=== PATIENT | female | born 1930 | race Caucasian/White ===

== ENCOUNTER 2017-05-12 22:41 | Inpatient (IN) | payer BC, MEDICARE ==
--- NOTE | 2017-05-13 00:42 | ED Physician Chart ---
Chief Complaint/HPI - Patient Information Date Seen:: 05/12/17 Time Seen:: 22:50 Chief Complaint:: FALL History of Present Illness:: THIS IS AN 87 YO FEMALE WHO FEMALE WHO LIVES ALONG AND FELL TONIGHT AND SUSTAIN SKIN TEARS ON BOTH LOWER EXTREMITIES. SHE IS CONCERN ABOUT THE NEED TO BE CARED FOR IN A CARE HOME AND WANT A SOCIAL SERVICE CONSULT. Allergies:: Allergies Allergy/AdvReac Type Severity Reaction Status Date / Time No Known Allergies Allergy Verified 05/12/17 22:48 Vitals:: Vital Signs - 8 hr 05/12/17 22:48 Temp 97.9 F HR 63 RR 18 BP 105/49 O2 Sat % 90 Historian:: Patient, EMS Review:: Nurse's Note Reviewed Review of Systems - Review of Systems General/Constitutional: No fever, No chills, No weight loss, No weakness, No diaphoresis, No edema, No loss of appetite Skin: No skin lesions, No rash, No bruising Head: No headache, No light-headedness Eyes: No loss of vision, No pain, No diplopia ENT: No earache, No nasal drainage, No sore throat, No tinnitus Neck: No neck pain, No swelling, No thyromegaly, No stiffness, No mass noted Cardio Vascular: No chest pain, No palpitations, No PND, No orthopnea, No edema Pulmonary: No SOB, No cough, No sputum, No wheezing GI: No nausea, No vomiting, No diarrhea, No pain, No melena, No hematochezia, No constipation, No hematemesis G/U: No dysuria, No frequency, No hematuria Musculoskeletal: No bone or joint pain, No back pain, No muscle pain, Other ( SKIN TEARS OF BOTH LOWER LEGS.) Endocrine: No polyuria, No polydipsia Psychiatric: No prior psych history, No depression, No anxiety, No suicidal ideation Hematopoietic: No bruising, No lymphadenopathy Allergic/Immuno: No urticaria, No angioedema Neurological: No syncope, No focal symptoms, No weakness, No paresthesia, No headache, No seizure, No dizziness, No confusion, No vertigo Past Medical History - Past Medical History Obtainable: Yes Family Medical History - Family Member mother History Unknown: Yes Physical Exam - Physical Examination General/Constitutional: Awake, Well-developed, well-nourished, Alert, No distress, GCS 15, Non-toxic appearing, Ambulatory Head: Atraumatic Eyes: Lids, conjuctiva normal, PERRL, EOMI Skin: Nl inspection, No rash, No skin lesions, No ecchymosis, Well hydrated, No lymphadenopathy ENMT: External ears, nose nl, Nasal exam nl, Lips, teeth, gums nl Neck: Nontender, Full ROM w/o pain, No JVD, No nuchal rigidity, No bruit, No mass, No stridor Respiratory: Nl effort/Exclusion, Clear to Auscultation, No Wheeze/Rhonchi/Rales Cardio Vascular: RRR, No murmur, gallop, rubs, NL S1 S2 GI: No tenderness/rebounding/guarding, No organomegaly, No hernia, Normal BS's, Nondistended, No mass/bruits, No McBurney tenderness : No CVA tenderness Extremities: No tenderness or effusion, Full ROM, normal strength in all extremities, No edema, Normal digits & nails Other Extremities comments:: SKIN AVULSION OF BOTH LOWER EXTREMITIES Neuro/Psych: Alert/oriented, DTR's symmetric, Normal sensory exam, Normal motor strength, Judgement/insight normal, Mood normal, Normal gait, No focal deficits Misc: normal gait, Normal back, No paraspinal tenderness Labs/Radiology/EKG Results - Lab Results Results: Abnormal Lab Results 05/13/17 05/13/17 05/13/17 00:49 00:49 00:49 WBC 13.6 H RBC 4.28 Hgb 12.7 Hct 38.1 MCV 88.9 MCH 29.6 MCHC Differential 33.3 RDW 14.4 Plt Count 359 MPV 5.8 Neutrophils % 84.5 H Lymphocytes % 7.0 L Monocytes % 7.7 Eosinophils % 0.3 Basophils % 0.5 PT 9.9 INR 0.95 Sodium Potassium Chloride Carbon Dioxide Anion Gap BUN Creatinine Est GFR ( Amer) Est GFR (Non-Af Amer) BUN/Creatinine Ratio Glucose Whole Bld Lactic Acid Calcium Total Bilirubin AST ALT Alkaline Phosphatase Troponin I Total Protein Albumin Globulin Albumin/Globulin Ratio Triglycerides 74 Cholesterol 177 LDL Cholesterol Direct 83 HDL Cholesterol 71 05/13/17 05/13/17 05/13/17 00:49 00:49 00:49 WBC RBC Hgb Hct MCV MCH MCHC Differential RDW Plt Count MPV Neutrophils % Lymphocytes % Monocytes % Eosinophils % Basophils % PT INR Sodium 135 L Potassium 3.5 Chloride 98 Carbon Dioxide 31.2 H Anion Gap 9.3 BUN 37 H Creatinine 1.5 H Est GFR ( Amer) TNP Est GFR (Non-Af Amer) TNP BUN/Creatinine Ratio 24.7 Glucose 117 H Whole Bld Lactic Acid 0.89 Calcium 9.3 Total Bilirubin 0.6 AST 18 ALT 12 Alkaline Phosphatase 70 Troponin I 0.05 Total Protein 6.6 Albumin 3.9 Globulin 2.7 Albumin/Globulin Ratio 1.4 Triglycerides Cholesterol LDL Cholesterol Direct HDL Cholesterol Assessment - Assessment General Assessment: DEHYDRATION SKIN TEARS OF BOTH LOWER LEGS ELEVATED WHITE COUNT ED Septic Shock - . Is Septic Shock (SBP<90, OR Lactate>4 mmol\L) present?: No - <6hrs of presentation: Vital Signs: Vital Signs - 8 hr 05/12/17 22:48 Temp 97.9 F HR 63 RR 18 BP 105/49 O2 Sat % 90 Reassessment (Disposition) - Reassessment Reassessment Condition:: Unchanged - Diagnosis Diagnosis:: DEHYDRATION SKIN TEARS OF BOTH ELEVATED WHITE COUNT - Patient Disposition Discharge/Transfer:: Acute Care w/in this hosp Admitting Medical Physician:: Kojo Estrada Condition at Disposition:: Unchanged ED Discharge Plan - Patient Disposition Admit/Discharge/Transfer: Acute Care w/in this hosp Condition at Disposition: Improved
[2017-05-13 01:24] LABS: INR 0.95 (0.5-1.4); PROTHROMBIN TIME (TEST) 9.9 SECONDS (9.5-11.5)
[2017-05-13 01:32] LABS: % BASOPHILS 0.5 % (0.0-2.0); % EOSINOPHILS 0.3 % (0.0-5.0); % MONOCYTES 7.7 % (2.0-10.0); % NEUTROPHILS 84.5 % (40.0-80.0); HEMATOCRIT 38.1 % (35.0-45.0); HEMOGLOBIN 12.7 gm/dL (11.7-16.1); MEAN CELL VOLUME 88.9 fl (81-100); MEAN CORPUSCULAR HEMOGLOBIN 29.6 pg (27.0-31.0); MEAN CORPUSCULAR HGB CONC 33.3 pg (28.0-36.0); MEAN PLATELET VOLUME 5.8 fl; NEUTROPHILE ABSOLUTE 11.5 Th/cmm (1.8-8.0); PLATELET COUNT 359 Th/cmm (150-400); RED BLOOD COUNT 4.28 Mil/cmm (3.80-5.20); RED CELL DISTRIBUTION WIDTH 14.4 % (11.5-20.0)
[2017-05-13 01:36] LABS: ALB/GLOB RATIO 1.4 (1.0-1.8); ALKALINE PHOSPHATASE 70 U/L (34-104); ANION GAP 9.3 (7.0-16.0); BILIRUBIN,TOTAL 0.6 mg/dL (0.3-1.0); BUN - UREA NITROGEN 37 mg/dL (7-25); BUN/CREATININE RATIO 24.7; CALCIUM SERUM 9.3 mg/dL (8.6-10.3); CARBON DIOXIDE 31.2 mEq/L (21.0-31.0); CHLORIDE 98 mEq/L (98-107); CHOLESTEROL 177 mg/dL (<200); CREATININE - SERUM 1.5 mg/dL (0.6-1.2); GLUCOSE 117 mg/dL (70-105); POTASSIUM SERUM 3.5 mEq/L (3.5-5.1); SGOT 18 U/L (13-39); SGPT/ALT 12 U/L (7-52); SODIUM SERUM 135 mEq/L (136-145); TRIGLYCERIDES 74 mg/dL (<150)
[2017-05-13 01:38] LABS: WHITE BLOOD COUNT 13.6 Th/cmm (4.8-10.8)
[2017-05-13 02:58] LABS: BE(B) 9.2 mEq/L (-3.0-3.0); HCO3 31.7 mEq/L (20.0-26.0)
[2017-05-13 03:00] LABS: ABG SOURCE Arterial; ALLEN TEST P; FIO2 21
[2017-05-13 04:38] VITALS: BP 153/113
[2017-05-13] MEDS ORDERED: Hydrocodone/APAP 10 mg/325 mg Tab PO PRN (04:38)
[2017-05-13] MEDS ORDERED: Morphine Sulfate 2 mg/mL 1mL Syr IVP PRN (04:38)
[2017-05-13] MEDS: D5-0.45NS 1,000 ML IV SCH ×2 (05:50→21:39)
--- NOTE | 2017-05-13 09:27 | Diagnostic Imaging Report ---
CHEST X-RAY: AP view INDICATION: Desaturation COMPARISON: None FINDINGS: Chronic lung changes are seen with elevation of the left hemidiaphragm. Small bilateral pleural effusions versus bibasilar pleural thickening is noted. Heart size is difficult to assess on this exam. Degenerative changes of the spine are noted with scoliosis. Degenerative changes of the shoulders are noted. Old bilateral rib fractures are noted. Chronic appearing spinal compression deformities are noted. No evidence of pneumothorax. IMPRESSION: Chronic lung changes with bibasal pleural thickening versus small bilateral effusions. No focal consolidation or evidence of CHF. Atherosclerotic vascular disease.
[2017-05-13 19:17] LABS: URINE COLOR YELLOW
[2017-05-13 19:23] LABS: URINE BILIRUBIN NEGATIVE (NEGATIVE); URINE GLUCOSE (UA) 500 mg/dL (NEGATIVE); URINE KETONE NEGATIVE (NEGATIVE)
[2017-05-13 19:24] LABS: URINE BLOOD LARGE (NEGATIVE); URINE PROTEIN TRACE mg/dL (NEGATIVE); URINE UROBILINOGEN 0.2 E.U./dL (0.2 - 1.0)
[2017-05-13 19:26] LABS: URINE BACTERIA NONE SEEN /hpf (NONE SEEN); URINE EPITHELIAL CELLS MODERATE /lpf (FEW); URINE WBC 0-2 /hpf (0-5)
[2017-05-13] MEDS ORDERED: LOVASTATIN OP SCH (21:00)
--- NOTE | 2017-05-13 21:35 | History & Physical ---
ADMIT DATE: 05/13/2017 PATIENT IDENTIFICATION: An 87-year-old female. 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 Lalo Ibanez, has a diagnosis of hypertension and osteoarthritis and osteoporosis. She tells me that she uses a pessary for her prolapsed uterus, states that last night she was walking with her walker and all of a sudden her walker gave up on her and she fell down and she basically injured her lower extremity and upper extremity and she had a lot laceration and bruises. The patient presented to ER by EMS and after being evaluated by Emergency Room MD, I was told to admit this patient because the patient was living her alone and she was not safe by her living by herself. PAST MEDICAL HISTORY: Remarkable for; 1. Hypertension. 2. Hypothyroidism. 3. Degenerative joint disease. 4. Osteoporosis. 5. Prolapsed uterus. MEDICATIONS: List has been reviewed and reconciled appropriately. ALLERGIES: The patient is not allergic to any medications. SOCIAL HISTORY: She lives by herself. She used to smoke in the past. She has 3 children, 1 . 1 daughter lives in [place] and son lives in [place]. REVIEW OF SYSTEMS: The patient currently denies any headache, blurred vision, double vision, dysphagia, odynophagia, runny nose, stuffy nose, fever, chills, cough, chest pain, shortness of breath, palpitation, dizziness, nausea, vomiting, diarrhea, dysuria, hematuria, hematochezia, melena. No seizure. PHYSICAL EXAMINATION: GENERAL: The patient is alert, awake, oriented, lying in the bed. VITAL SIGNS: Temperature 97.7, pulse 64, respiratory rate is 18, blood pressure 114/54. HEENT: Normocephalic, atraumatic. Extraocular muscles are intact. Tongue was pink and coated. Multiple absent teeth were noted. NECK: Supple. No JVD, no hepatojugular reflex. No lymphadenopathy, thyromegaly or carotid bruit. HEART: Both heart sounds are regular. Grade 2/6 systolic murmur noted. CHEST: Lung equal in expansion, no wheezing, no crackles. ABDOMEN: Soft. No guarding, no rigidity. Liver and spleen are not palpable. No palpable mass. EXTREMITIES: No edema. Peripheral pulses +1. No calf tenderness noted, multiple lacerations, bruising, and hematoma noted on upper and lower extremities. NEUROLOGIC: Alert, awake, follows commands. Decreased ____. AVAILABLE DIAGNOSTIC DATA: Performed in the Emergency Room, chest x-ray, CBC, ABG, chemistry panel. TSH, RPR is reviewed. CLINICAL IMPRESSION: 1. Status post mechanical fall and injury to the upper and lower extremity, no need for any acute intervention at this time. The patient does not have any x-rays of her extremities. 2. Hypertension. 3. Elevated BUN and creatinine, mostly from diuretic related. 4. Hypothyroidism. 5. Degenerative joint disease. 6. Osteoporosis. 7. Lives by herself. PLAN: 1. The patient will be given local wound care. 2. X-rays of the both femur and tibia and fibula will be obtained to make sure there is no fracture. 3. Social Service consultation. 4. Hold diuretics. 5. Appropriate home medicine reconciliation. 6. PT/OT. 7. General nursing care. 8. Nutritional support. 9. Follow lab. 10. Follow consultants recommendation. 11. Care plan reviewed. JOB# [id number]
[2017-05-14 06:10] LABS: HEMATOCRIT 36.5 % (35.0-45.0); HEMOGLOBIN 12.2 gm/dL (11.7-16.1); MEAN CELL VOLUME 88.9 fl (81-100); MEAN CORPUSCULAR HEMOGLOBIN 29.8 pg (27.0-31.0); MEAN CORPUSCULAR HGB CONC 33.5 pg (28.0-36.0); MEAN PLATELET VOLUME 5.8 fl; PLATELET COUNT 328 Th/cmm (150-400); RED CELL DISTRIBUTION WIDTH 13.9 % (11.5-20.0)
[2017-05-14 06:19] LABS: ALB/GLOB RATIO 1.4 (1.0-1.8); ALKALINE PHOSPHATASE 64 U/L (34-104); BILIRUBIN,TOTAL 0.5 mg/dL (0.3-1.0); BUN - UREA NITROGEN 26 mg/dL (7-25); BUN/CREATININE RATIO 28.9; CALCIUM SERUM 8.7 mg/dL (8.6-10.3); CARBON DIOXIDE 31.2 mEq/L (21.0-31.0); CHLORIDE 99 mEq/L (98-107); CREATININE - SERUM 0.9 mg/dL (0.6-1.2); GLUCOSE 160 mg/dL (70-105); POTASSIUM SERUM 3.2 mEq/L (3.5-5.1); SGOT 16 U/L (13-39); SGPT/ALT 10 U/L (7-52); SODIUM SERUM 134 mEq/L (136-145); WHITE BLOOD COUNT 15.2 Th/cmm (4.8-10.8)
[2017-05-14 07:16] LABS: BAND NEUTROPHILE 2 % (0-10); NEUTROPHILS 87 % (40-80); TOTAL CELLS COUNTED 100
[2017-05-14 07:17] LABS: PLATELET ESTIMATE ADEQUATE (NORMAL)
[2017-05-14] MEDS: Levothyroxine 0.1 Mg Tab PO SCH (09:05)
[2017-05-14] MEDS: Diltiazem CD 120 mg 24H PO SCH (09:06)
--- NOTE | 2017-05-14 10:10 | Diagnostic Imaging Report ---
Right femur 2 views Indication: Fall Comparison: Right tib-fib x-rays the same day Findings: The total right hip arthroplasty is noted. Exam is limited due to positioning. There is a chronic appearing fracture involving the proximal shaft of the right femur. Sclerotic line of the right inferior pubic ramus is noted.. Degenerative changes of knee joint is noted. Diffuse atherosclerotic vascular disease noted. No evidence of dislocation. Impression: Evidence of previous total right hip arthroplasty. Chronic appearing proximal right femoral shaft fracture is seen along the medial aspect, adjacent to the femoral stem of the prosthesis. Additional sclerotic line of the right inferior pubic ramus is noted possibly due to an age-indeterminate nondisplaced fracture, likely also old. In the setting of trauma, if clinical symptoms persist and there is continued concern for an occult fracture, follow up exams in 5-7 days is suggested.
--- NOTE | 2017-05-14 10:11 | Diagnostic Imaging Report ---
Right tib-fib 2 views Indication: Fall Comparison: Right femur x-ray the same day Findings: Moderate to advanced degenerative changes of the knee joint are noted. There is a marginal osteophytic spurring is noted. No evidence of an acute fracture. Trace joint effusion is noted. Atherosclerosis is noted. No significant focal soft tissue swelling. Impression: No evidence of an acute fracture. Degenerative changes. In the setting of trauma, if clinical symptoms persist and there is continued concern for an occult fracture, follow up exams in 5-7 days is suggested.
--- NOTE | 2017-05-14 10:14 | Diagnostic Imaging Report ---
Left femur 2 views Indication: Fall Comparison: Left tib-fib the same day Findings: There is end-stage arthritis of the left hip joint with irregularity femoral head and complete joint space loss and sclerotic changes. There is superior migration left femoral head without evidence of dislocation. No evidence of an acute fracture. Atherosclerosis is noted. Impression: End-stage arthritis of the left hip joint with superior migration of the left femoral head. No evidence of acute fracture or dislocation. In the setting of trauma, if clinical symptoms persist and there is continued concern for an occult fracture, follow up exams in 5-7 days is suggested.
--- NOTE | 2017-05-14 10:16 | Diagnostic Imaging Report ---
Left tib-fib 2 views Indication: Fall Comparison: Left femur x-rays the same day Findings: Mottled appearance of the bones are noted. No evidence of acute fracture or dislocation. Moderate degenerative changes of the joint are noted. No focal soft tissue swelling. Atherosclerosis is noted. Impression: No evidence of an acute fracture Mottled appearance of the tibia and fibula probably due to osteopenia. Other metabolic or neoplastic processes is considered less likely however correlation should be made with clinical history. In the setting of trauma, if clinical symptoms persist and there is continued concern for an occult fracture, follow up exams in 5-7 days is suggested.
[2017-05-14] MEDS: D5-0.45NS 1,000 ML IV SCH (14:43)
[2017-05-14] MEDS ORDERED: Potassium Chloride 20 mEq ER Tab PO ONE (15:32)
[2017-05-15] MEDS: Levothyroxine 0.1 Mg Tab PO SCH (09:50)
[2017-05-15] MEDS: Aspirin 81mg Chewable Tab PO SCH (09:50)
[2017-05-15] MEDS: Diltiazem CD 120 mg 24H PO SCH (09:51)
--- NOTE | 2017-05-15 13:01 | General Progress Note ---
Subjective - Review of Systems Subjective: Patient is seen and examined. Patient had episode of confusion last night. CT scan of the head was recommended which patient declined. This morning patient' s mental status is back to baseline. Patient denies any chest pain, shortness of breath, palpitation, dizziness, nausea, vomiting, diarrhea, headache. Patient 's bruising and pain on her upper and lower extremities are same. Objective - Results Result Diagrams: 05/14/17 05:40 05/14/17 05:40 Recent Labs: Laboratory Last Values WBC 15.2 Th/cmm (4.8-10.8) H 05/14/17 05:40 RBC 4.10 Mil/cmm (3.80-5.20) 05/14/17 05:40 Hgb 12.2 gm/dL (11.7-16.1) 05/14/17 05:40 Hct 36.5 % (35.0-45.0) 05/14/17 05:40 MCV 88.9 fl (81-100) 05/14/17 05:40 MCH 29.8 pg (27.0-31.0) 05/14/17 05:40 MCHC Differential 33.5 pg (28.0-36.0) 05/14/17 05:40 RDW 13.9 % (11.5-20.0) 05/14/17 05:40 Plt Count 328 Th/cmm (150-400) 05/14/17 05:40 MPV 5.8 fl 05/14/17 05:40 Neutrophils % 84.5 % (40.0-80.0) H 05/13/17 00:49 Band Neutrophils % 2 % (0-10) 05/14/17 05:40 Lymphocytes % 7.0 % (20.0-50.0) L 05/13/17 00:49 Monocytes % 7.7 % (2.0-10.0) 05/13/17 00:49 Eosinophils % 0.3 % (0.0-5.0) 05/13/17 00:49 Basophils % 0.5 % (0.0-2.0) 05/13/17 00:49 Neutrophils (Manual) 87 % (40-80) H 05/14/17 05:40 Lymphocytes 6 % (20-50) L 05/14/17 05:40 Monocytes 5 % (2-10) 05/14/17 05:40 Platelet Estimate ADEQUATE (NORMAL) 05/14/17 05:40 PT 9.9 SECONDS (9.5-11.5) 05/13/17 00:49 INR 0.95 (0.5-1.4) 05/13/17 00:49 Specimen Source Arterial 05/13/17 02:21 Sample Site L-R 05/13/17 02:21 pH 7.40 (7.35-7.45) 05/13/17 02:21 pCO2 58.0 mmHg (35.0-45.0) H* 05/13/17 02:21 pO2 43.0 mmHg (80.0-100.0) L* 05/13/17 02:21 HCO3 31.7 mEq/L (20.0-26.0) H 05/13/17 02:21 Base Excess 9.2 mEq/L (-3.0-3.0) H 05/13/17 02:21 O2 Saturation 79.0 % (92.0-100.0) L 05/13/17 02:21 Mike Test P 05/13/17 02:21 Vent Rate NA 05/13/17 02:21 Inspired O2 21 05/13/17 02:21 Tidal Volume NA 05/13/17 02:21 PEEP NA 05/13/17 02:21 Pressure (ins/psv/peep) NA 05/13/17 02:21 Critical Value RPINEIRA 05/13/17 02:21 Sodium 134 mEq/L (136-145) L 05/14/17 05:40 Potassium 3.2 mEq/L (3.5-5.1) L 05/14/17 05:40 Chloride 99 mEq/L (98-107) 05/14/17 05:40 Carbon Dioxide 31.2 mEq/L (21.0-31.0) H 05/14/17 05:40 Anion Gap 7.0 (7.0-16.0) 05/14/17 05:40 BUN 26 mg/dL (7-25) H 05/14/17 05:40 Creatinine 0.9 mg/dL (0.6-1.2) 05/14/17 05:40 Est GFR ( Amer) TNP 05/14/17 05:40 Est GFR (Non-Af Amer) TNP 05/14/17 05:40 BUN/Creatinine Ratio 28.9 05/14/17 05:40 Glucose 160 mg/dL (70-105) H 05/14/17 05:40 Whole Bld Lactic Acid 0.89 mmol/L (0.60-1.99) 05/13/17 00:49 Calcium 8.7 mg/dL (8.6-10.3) 05/14/17 05:40 Total Bilirubin 0.5 mg/dL (0.3-1.0) 05/14/17 05:40 AST 16 U/L (13-39) 05/14/17 05:40 ALT 10 U/L (7-52) 05/14/17 05:40 Alkaline Phosphatase 64 U/L (34-104) 05/14/17 05:40 Troponin I 0.05 ng/mL (0.01-0.05) 05/13/17 00:49 Total Protein 6.0 gm/dL (6.0-8.3) 05/14/17 05:40 Albumin 3.5 gm/dL (3.7-5.3) L 05/14/17 05:40 Globulin 2.5 gm/dL 05/14/17 05:40 Albumin/Globulin Ratio 1.4 (1.0-1.8) 05/14/17 05:40 Triglycerides 74 mg/dL (<150) 05/13/17 00:49 Cholesterol 177 mg/dL (<200) 05/13/17 00:49 LDL Cholesterol Direct 83 mg/dL (75-193) 05/13/17 00:49 HDL Cholesterol 71 mg/dL (23-92) 05/13/17 00:49 TSH 0.05 uIU/ml (0.34-5.60) L 05/13/17 00:49 Urine Source CLEAN C 05/13/17 15:30 Urine Color YELLOW 05/13/17 15:30 Urine Clarity HAZY (CLEAR) 05/13/17 15:30 Urine pH 6.0 (4.6 - 8.0) 05/13/17 15:30 Ur Specific [place] 1.015 (1.005-1.030) 05/13/17 15:30 Urine Protein TRACE mg/dL (NEGATIVE) 05/13/17 15:30 Urine Glucose (UA) 500 mg/dL (NEGATIVE) H 05/13/17 15:30 Urine Ketones NEGATIVE mg/dL (NEGATIVE) 05/13/17 15:30 Urine Blood LARGE (NEGATIVE) H 05/13/17 15:30 Urine Nitrate NEGATIVE (NEGATIVE) 05/13/17 15:30 Urine Bilirubin NEGATIVE (NEGATIVE) 05/13/17 15:30 Urine Urobilinogen 0.2 E.U./dL (0.2 - 1.0) 05/13/17 15:30 Ur Leukocyte Esterase SMALL (NEGATIVE) H 05/13/17 15:30 Urine RBC 10-25 /hpf (0-5) H 05/13/17 15:30 Urine WBC 0-2 /hpf (0-5) 05/13/17 15:30 Ur Epithelial Cells MODERATE /lpf (FEW) 05/13/17 15:30 Urine Bacteria NONE SEEN /hpf (NONE SEEN) 05/13/17 15:30 RPR NONREACTIVE (NONREACTIVE) 05/13/17 00:49 - Physical Exam Vitals and I&O: Vital Signs Temp 97.5 F 05/15/17 04:00 Pulse 66 05/15/17 09:51 Resp 14 05/15/17 07:15 BP 126/55 05/15/17 09:51 Pulse Ox 90 05/15/17 07:15 Intake & Output 05/14/17 05/15/17 05/15/17 18:59 06:59 18:59 Intake Total 1000 100 Balance 1000 100 Weight (lbs) 51.71 kg Intake: Intake, IV Amount 1000 D5-0.45NS 1,000 ml @ 60 1000 mls/hr IV .[id number] [facility] Rx #:[id number] Oral 100 Other: # Voids 2 # Bowel Movements 0 Active Medications: Current Medications Acetaminophen/Hydrocodone Bitart ([place] 10 Mg/325 Mg) 1 tab PO Q6H PRN PRN Reason: Pain (Moderate) Stop: 07/12/17 04:37 Aspirin (Aspirin Chewable) 81 mg PO DAILY [facility] Stop: 07/14/17 08:59 Last Admin: 05/15/17 09:50 Dose: 81 mg Diltiazem HCl (Cardizem Cd) 240 mg PO DAILY [facility] Stop: 07/13/17 08:59 Last Admin: 05/15/17 09:51 Dose: 240 mg Furosemide (Lasix) 20 mg PO DAILY [facility] Stop: 07/13/17 08:59 Last Admin: 05/15/17 09:50 Dose: 20 mg Dextrose/Sodium Chloride (D5-0.45ns) 1,000 mls @ 60 mls/hr IV .[id number] [facility] Stop: 07/12/17 04:37 Last Admin: 05/14/17 14:43 Dose: 60 mls/hr Levothyroxine Sodium (Synthroid) 0.1 mg PO DAILY [facility] Stop: 07/13/17 08:59 Last Admin: 05/15/17 09:50 Dose: 0.1 mg Losartan Potassium (Cozaar) 25 mg PO DAILY [facility] Stop: 07/13/17 08:59 Last Admin: 05/15/17 09:51 Dose: 25 mg Morphine Sulfate (Morphine) 2 mg IVP Q6H PRN PRN Reason: Pain (Severe) Stop: 07/12/17 04:37 Last Admin: 05/14/17 22:04 Dose: 2 mg Simvastatin (Zocor) 40 mg PO HS [facility] PRN Reason: Protocol Stop: 07/12/17 20:59 Last Admin: 05/14/17 20:19 Dose: 40 mg General: Alert, Oriented x3, Cooperative, No acute distress HEENT: Atraumatic, PERRLA, EOMI Neck: Supple, +2 carotid pulse wo bruit Cardiovascular: Regular rate, Normal S1, Normal S2 Lungs: Clear to auscultation Abdomen: Bowel sounds, Soft Extremities: Other (multiple areas of hematomas and laceration and bruising on upper and lower extremities.) Neurological: Other (decrease part for the upper and lower extremity.) Skin: Breakdown Assessment/Plan - Assessment Assessment: Status post mechanical fall. Multiple laceration and bruising involving upper and lower extremity Hypertension Hypothyroidism DJD. Osteoporosis Advanced DJD of left hip. Declining self-care and mobility Fall risk Transient altered mental status resolved. - Plan Plan: Discussed with social and human services assistant about DC planning. Patient does not want to go to longterm. We will have social service to look at her insurance and arrange home health visiting nurse for a rehabilitation, general nursing care PT OT and medication compliance and home safety. I will continue current medication as patient is receiving at this time and continue to start physical therapy and occupational therapy.
[2017-05-15] MEDS: D5-0.45NS 1,000 ML IV SCH (18:51)
[2017-05-16 06:46] LABS: % BASOPHILS 0.9 % (0.0-2.0); % EOSINOPHILS 1.8 % (0.0-5.0); % MONOCYTES 10.1 % (2.0-10.0); % NEUTROPHILS 77.2 % (40.0-80.0); HEMOGLOBIN 13.4 gm/dL (11.7-16.1); MEAN CELL VOLUME 88.4 fl (81-100); MEAN CORPUSCULAR HGB CONC 32.8 pg (28.0-36.0); MEAN PLATELET VOLUME 5.9 fl; NEUTROPHILE ABSOLUTE 7.3 Th/cmm (1.8-8.0); PLATELET COUNT 327 Th/cmm (150-400); RED BLOOD COUNT 4.64 Mil/cmm (3.80-5.20); RED CELL DISTRIBUTION WIDTH 14.1 % (11.5-20.0); WHITE BLOOD COUNT 9.6 Th/cmm (4.8-10.8)
[2017-05-16] MEDS: D5-0.45NS 1,000 ML IV SCH ×2 (07:05→23:44)
[2017-05-16 07:10] LABS: ALB/GLOB RATIO 1.3 (1.0-1.8); ALKALINE PHOSPHATASE 77 U/L (34-104); ANION GAP 6.7 (7.0-16.0); BILIRUBIN,TOTAL 0.8 mg/dL (0.3-1.0); BUN - UREA NITROGEN 15 mg/dL (7-25); CARBON DIOXIDE 33.8 mEq/L (21.0-31.0); CHLORIDE 92 mEq/L (98-107); CREATININE - SERUM 0.5 mg/dL (0.6-1.2); GLUCOSE 96 mg/dL (70-105); POTASSIUM SERUM 3.5 mEq/L (3.5-5.1); SGOT 19 U/L (13-39); SGPT/ALT 13 U/L (7-52); SODIUM SERUM 129 mEq/L (136-145)
[2017-05-16] MEDS: Levothyroxine 0.1 Mg Tab PO SCH (08:13)
[2017-05-16] MEDS: Aspirin 81mg Chewable Tab PO SCH (08:13)
[2017-05-16] MEDS: Diltiazem CD 120 mg 24H PO SCH (08:13)
--- NOTE | 2017-05-16 09:18 | General Progress Note ---
Subjective - Review of Systems Subjective: Patient is seen and examined. The patient's family wanted to go home today. Patient's denies any chest pain, shortness of breath, palpitation, dizziness, nausea, vomiting. Discussed with the school social worker but DC planning to home with home health visiting nurse. Objective - Results Result Diagrams: 05/16/17 06:00 05/16/17 06:00 Recent Labs: Laboratory Last Values WBC 9.6 Th/cmm (4.8-10.8) D 05/16/17 06:00 RBC 4.64 Mil/cmm (3.80-5.20) 05/16/17 06:00 Hgb 13.4 gm/dL (11.7-16.1) 05/16/17 06:00 Hct 41.0 % (35.0-45.0) D 05/16/17 06:00 MCV 88.4 fl (81-100) 05/16/17 06:00 MCH 29.0 pg (27.0-31.0) 05/16/17 06:00 MCHC Differential 32.8 pg (28.0-36.0) 05/16/17 06:00 RDW 14.1 % (11.5-20.0) 05/16/17 06:00 Plt Count 327 Th/cmm (150-400) 05/16/17 06:00 MPV 5.9 fl 05/16/17 06:00 Neutrophils % 77.2 % (40.0-80.0) 05/16/17 06:00 Band Neutrophils % 2 % (0-10) 05/14/17 05:40 Lymphocytes % 10.0 % (20.0-50.0) L 05/16/17 06:00 Monocytes % 10.1 % (2.0-10.0) H 05/16/17 06:00 Eosinophils % 1.8 % (0.0-5.0) 05/16/17 06:00 Basophils % 0.9 % (0.0-2.0) 05/16/17 06:00 Neutrophils (Manual) 87 % (40-80) H 05/14/17 05:40 Lymphocytes 6 % (20-50) L 05/14/17 05:40 Monocytes 5 % (2-10) 05/14/17 05:40 Platelet Estimate ADEQUATE (NORMAL) 05/14/17 05:40 PT 9.9 SECONDS (9.5-11.5) 05/13/17 00:49 INR 0.95 (0.5-1.4) 05/13/17 00:49 Specimen Source Arterial 05/13/17 02:21 Sample Site L-R 05/13/17 02:21 pH 7.40 (7.35-7.45) 05/13/17 02:21 pCO2 58.0 mmHg (35.0-45.0) H* 05/13/17 02:21 pO2 43.0 mmHg (80.0-100.0) L* 05/13/17 02:21 HCO3 31.7 mEq/L (20.0-26.0) H 05/13/17 02:21 Base Excess 9.2 mEq/L (-3.0-3.0) H 05/13/17 02:21 O2 Saturation 79.0 % (92.0-100.0) L 05/13/17 02:21 Mike Test P 05/13/17 02:21 Vent Rate NA 05/13/17 02:21 Inspired O2 21 05/13/17 02:21 Tidal Volume NA 05/13/17 02:21 PEEP NA 05/13/17 02:21 Pressure (ins/psv/peep) NA 05/13/17 02:21 Critical Value RPINEIRA 05/13/17 02:21 Sodium 129 mEq/L (136-145) L 05/16/17 06:00 Potassium 3.5 mEq/L (3.5-5.1) 05/16/17 06:00 Chloride 92 mEq/L (98-107) L 05/16/17 06:00 Carbon Dioxide 33.8 mEq/L (21.0-31.0) H 05/16/17 06:00 Anion Gap 6.7 (7.0-16.0) L 05/16/17 06:00 BUN 15 mg/dL (7-25) 05/16/17 06:00 Creatinine 0.5 mg/dL (0.6-1.2) L 05/16/17 06:00 Est GFR ( Amer) TNP 05/16/17 06:00 Est GFR (Non-Af Amer) TNP 05/16/17 06:00 BUN/Creatinine Ratio 30.0 05/16/17 06:00 Glucose 96 mg/dL (70-105) 05/16/17 06:00 Whole Bld Lactic Acid 0.89 mmol/L (0.60-1.99) 05/13/17 00:49 Calcium 9.0 mg/dL (8.6-10.3) 05/16/17 06:00 Total Bilirubin 0.8 mg/dL (0.3-1.0) 05/16/17 06:00 AST 19 U/L (13-39) 05/16/17 06:00 ALT 13 U/L (7-52) 05/16/17 06:00 Alkaline Phosphatase 77 U/L (34-104) 05/16/17 06:00 Troponin I 0.05 ng/mL (0.01-0.05) 05/13/17 00:49 Total Protein 6.0 gm/dL (6.0-8.3) 05/16/17 06:00 Albumin 3.4 gm/dL (3.7-5.3) L 05/16/17 06:00 Globulin 2.6 gm/dL 05/16/17 06:00 Albumin/Globulin Ratio 1.3 (1.0-1.8) 05/16/17 06:00 Triglycerides 74 mg/dL (<150) 05/13/17 00:49 Cholesterol 177 mg/dL (<200) 05/13/17 00:49 LDL Cholesterol Direct 83 mg/dL (75-193) 05/13/17 00:49 HDL Cholesterol 71 mg/dL (23-92) 05/13/17 00:49 TSH 0.05 uIU/ml (0.34-5.60) L 05/13/17 00:49 Urine Source CLEAN C 05/13/17 15:30 Urine Color YELLOW 05/13/17 15:30 Urine Clarity HAZY (CLEAR) 05/13/17 15:30 Urine pH 6.0 (4.6 - 8.0) 05/13/17 15:30 Ur Specific [place] 1.015 (1.005-1.030) 05/13/17 15:30 Urine Protein TRACE mg/dL (NEGATIVE) 05/13/17 15:30 Urine Glucose (UA) 500 mg/dL (NEGATIVE) H 05/13/17 15:30 Urine Ketones NEGATIVE mg/dL (NEGATIVE) 05/13/17 15:30 Urine Blood LARGE (NEGATIVE) H 05/13/17 15:30 Urine Nitrate NEGATIVE (NEGATIVE) 05/13/17 15:30 Urine Bilirubin NEGATIVE (NEGATIVE) 05/13/17 15:30 Urine Urobilinogen 0.2 E.U./dL (0.2 - 1.0) 05/13/17 15:30 Ur Leukocyte Esterase SMALL (NEGATIVE) H 05/13/17 15:30 Urine RBC 10-25 /hpf (0-5) H 05/13/17 15:30 Urine WBC 0-2 /hpf (0-5) 05/13/17 15:30 Ur Epithelial Cells MODERATE /lpf (FEW) 05/13/17 15:30 Urine Bacteria NONE SEEN /hpf (NONE SEEN) 05/13/17 15:30 RPR NONREACTIVE (NONREACTIVE) 05/13/17 00:49 - Physical Exam Vitals and I&O: Vital Signs Temp 98.4 F 05/16/17 04:10 Pulse 75 05/16/17 08:15 Resp 18 05/16/17 08:15 BP 143/72 05/16/17 08:13 Pulse Ox 94 05/16/17 08:15 Intake & Output 05/15/17 05/16/17 05/16/17 18:59 06:59 18:59 Intake Total 1060 934 Balance 1060 934 Weight (lbs) 51.71 kg 51.511 kg 51.619 kg Intake: Intake, IV Amount 1000 734 D5-0.45NS 1,000 ml @ 60 1000 734 mls/hr IV .[id number] [facility] Rx #:[id number] Oral 60 200 Other: # Voids 5 4 # Bowel Movements 0 0 0 Active Medications: Current Medications Acetaminophen/Hydrocodone Bitart ([place] 10 Mg/325 Mg) 1 tab PO Q6H PRN PRN Reason: Pain (Moderate) Stop: 07/12/17 04:37 Aspirin (Aspirin Chewable) 81 mg PO DAILY [facility] Stop: 07/14/17 08:59 Last Admin: 05/16/17 08:13 Dose: 81 mg Diltiazem HCl (Cardizem Cd) 240 mg PO DAILY [facility] Stop: 07/13/17 08:59 Last Admin: 05/16/17 08:13 Dose: 240 mg Furosemide (Lasix) 20 mg PO DAILY [facility] Stop: 07/13/17 08:59 Last Admin: 05/16/17 08:13 Dose: 20 mg Dextrose/Sodium Chloride (D5-0.45ns) 1,000 mls @ 60 mls/hr IV .[id number] [facility] Stop: 07/12/17 04:37 Last Admin: 05/16/17 07:05 Dose: 60 mls/hr Levothyroxine Sodium (Synthroid) 0.1 mg PO DAILY [facility] Stop: 07/13/17 08:59 Last Admin: 05/16/17 08:13 Dose: 0.1 mg Losartan Potassium (Cozaar) 25 mg PO DAILY [facility] Stop: 07/13/17 08:59 Last Admin: 05/16/17 08:13 Dose: 25 mg Morphine Sulfate (Morphine) 2 mg IVP Q6H PRN PRN Reason: Pain (Severe) Stop: 07/12/17 04:37 Last Admin: 05/14/17 22:04 Dose: 2 mg Simvastatin (Zocor) 40 mg PO HS [facility] PRN Reason: Protocol Stop: 07/12/17 20:59 Last Admin: 05/15/17 21:06 Dose: Not Given General: Alert, Oriented x3, Cooperative, No acute distress HEENT: Atraumatic, PERRLA, EOMI Neck: Supple, +2 carotid pulse wo bruit Cardiovascular: Regular rate, Normal S1, Normal S2 Lungs: Clear to auscultation Abdomen: Bowel sounds, Soft Extremities: Other (multiple areas of hematomas and laceration and bruising on upper and lower extremities.) Neurological: Other (decrease part for the upper and lower extremity.) Skin: Breakdown Assessment/Plan - Assessment Assessment: Status post mechanical fall. Multiple laceration and bruising involving upper and lower extremity Hypertension Hypothyroidism DJD. Osteoporosis Advanced DJD of left hip. Declining self-care and mobility Fall risk Transient altered mental status resolved. - Plan Plan: Discussed with school social worker about DC planning today. Start PT and OT . Home health consult for medication compliance and home safety, and general nursing care, PT OT. Discharge to home once everything is arranged. Outpatient follow-up with primary care Natasha in one week
[2017-05-17] MEDS: Levothyroxine 0.1 Mg Tab PO SCH (08:35)
[2017-05-17] MEDS: Diltiazem CD 120 mg 24H PO SCH (08:36)
[2017-05-17] MEDS: Aspirin 81mg Chewable Tab PO SCH (08:36)
--- NOTE | 2017-05-17 10:01 | General Progress Note ---
Subjective - Review of Systems Subjective: Patient is seen and examined. Patient's denies any chest pain, shortness of breath, palpitation, dizziness, nausea, vomiting. Discussed with the social group worker, TRUDY planning to home with home health visiting nurse under progress. Objective - Results Result Diagrams: 05/16/17 06:00 05/16/17 06:00 Recent Labs: Laboratory Last Values WBC 9.6 Th/cmm (4.8-10.8) D 05/16/17 06:00 RBC 4.64 Mil/cmm (3.80-5.20) 05/16/17 06:00 Hgb 13.4 gm/dL (11.7-16.1) 05/16/17 06:00 Hct 41.0 % (35.0-45.0) D 05/16/17 06:00 MCV 88.4 fl (81-100) 05/16/17 06:00 MCH 29.0 pg (27.0-31.0) 05/16/17 06:00 MCHC Differential 32.8 pg (28.0-36.0) 05/16/17 06:00 RDW 14.1 % (11.5-20.0) 05/16/17 06:00 Plt Count 327 Th/cmm (150-400) 05/16/17 06:00 MPV 5.9 fl 05/16/17 06:00 Neutrophils % 77.2 % (40.0-80.0) 05/16/17 06:00 Band Neutrophils % 2 % (0-10) 05/14/17 05:40 Lymphocytes % 10.0 % (20.0-50.0) L 05/16/17 06:00 Monocytes % 10.1 % (2.0-10.0) H 05/16/17 06:00 Eosinophils % 1.8 % (0.0-5.0) 05/16/17 06:00 Basophils % 0.9 % (0.0-2.0) 05/16/17 06:00 Neutrophils (Manual) 87 % (40-80) H 05/14/17 05:40 Lymphocytes 6 % (20-50) L 05/14/17 05:40 Monocytes 5 % (2-10) 05/14/17 05:40 Platelet Estimate ADEQUATE (NORMAL) 05/14/17 05:40 PT 9.9 SECONDS (9.5-11.5) 05/13/17 00:49 INR 0.95 (0.5-1.4) 05/13/17 00:49 Specimen Source Arterial 05/13/17 02:21 Sample Site L-R 05/13/17 02:21 pH 7.40 (7.35-7.45) 05/13/17 02:21 pCO2 58.0 mmHg (35.0-45.0) H* 05/13/17 02:21 pO2 43.0 mmHg (80.0-100.0) L* 05/13/17 02:21 HCO3 31.7 mEq/L (20.0-26.0) H 05/13/17 02:21 Base Excess 9.2 mEq/L (-3.0-3.0) H 05/13/17 02:21 O2 Saturation 79.0 % (92.0-100.0) L 05/13/17 02:21 Mike Test P 05/13/17 02:21 Vent Rate NA 05/13/17 02:21 Inspired O2 21 05/13/17 02:21 Tidal Volume NA 05/13/17 02:21 PEEP NA 05/13/17 02:21 Pressure (ins/psv/peep) NA 05/13/17 02:21 Critical Value RPINEIRA 05/13/17 02:21 Sodium 129 mEq/L (136-145) L 05/16/17 06:00 Potassium 3.5 mEq/L (3.5-5.1) 05/16/17 06:00 Chloride 92 mEq/L (98-107) L 05/16/17 06:00 Carbon Dioxide 33.8 mEq/L (21.0-31.0) H 05/16/17 06:00 Anion Gap 6.7 (7.0-16.0) L 05/16/17 06:00 BUN 15 mg/dL (7-25) 05/16/17 06:00 Creatinine 0.5 mg/dL (0.6-1.2) L 05/16/17 06:00 Est GFR ( Amer) TNP 05/16/17 06:00 Est GFR (Non-Af Amer) TNP 05/16/17 06:00 BUN/Creatinine Ratio 30.0 05/16/17 06:00 Glucose 96 mg/dL (70-105) 05/16/17 06:00 Whole Bld Lactic Acid 0.89 mmol/L (0.60-1.99) 05/13/17 00:49 Calcium 9.0 mg/dL (8.6-10.3) 05/16/17 06:00 Total Bilirubin 0.8 mg/dL (0.3-1.0) 05/16/17 06:00 AST 19 U/L (13-39) 05/16/17 06:00 ALT 13 U/L (7-52) 05/16/17 06:00 Alkaline Phosphatase 77 U/L (34-104) 05/16/17 06:00 Troponin I 0.05 ng/mL (0.01-0.05) 05/13/17 00:49 Total Protein 6.0 gm/dL (6.0-8.3) 05/16/17 06:00 Albumin 3.4 gm/dL (3.7-5.3) L 05/16/17 06:00 Globulin 2.6 gm/dL 05/16/17 06:00 Albumin/Globulin Ratio 1.3 (1.0-1.8) 05/16/17 06:00 Triglycerides 74 mg/dL (<150) 05/13/17 00:49 Cholesterol 177 mg/dL (<200) 05/13/17 00:49 LDL Cholesterol Direct 83 mg/dL (75-193) 05/13/17 00:49 HDL Cholesterol 71 mg/dL (23-92) 05/13/17 00:49 TSH 0.05 uIU/ml (0.34-5.60) L 05/13/17 00:49 Urine Source CLEAN C 05/13/17 15:30 Urine Color YELLOW 05/13/17 15:30 Urine Clarity HAZY (CLEAR) 05/13/17 15:30 Urine pH 6.0 (4.6 - 8.0) 05/13/17 15:30 Ur Specific [place] 1.015 (1.005-1.030) 05/13/17 15:30 Urine Protein TRACE mg/dL (NEGATIVE) 05/13/17 15:30 Urine Glucose (UA) 500 mg/dL (NEGATIVE) H 05/13/17 15:30 Urine Ketones NEGATIVE mg/dL (NEGATIVE) 05/13/17 15:30 Urine Blood LARGE (NEGATIVE) H 05/13/17 15:30 Urine Nitrate NEGATIVE (NEGATIVE) 05/13/17 15:30 Urine Bilirubin NEGATIVE (NEGATIVE) 05/13/17 15:30 Urine Urobilinogen 0.2 E.U./dL (0.2 - 1.0) 05/13/17 15:30 Ur Leukocyte Esterase SMALL (NEGATIVE) H 05/13/17 15:30 Urine RBC 10-25 /hpf (0-5) H 05/13/17 15:30 Urine WBC 0-2 /hpf (0-5) 05/13/17 15:30 Ur Epithelial Cells MODERATE /lpf (FEW) 05/13/17 15:30 Urine Bacteria NONE SEEN /hpf (NONE SEEN) 05/13/17 15:30 RPR NONREACTIVE (NONREACTIVE) 05/13/17 00:49 - Physical Exam Vitals and I&O: Vital Signs Temp 98.1 F 05/17/17 08:00 Pulse 70 05/17/17 08:36 Resp 18 05/17/17 08:00 BP 135/70 05/17/17 08:36 Pulse Ox 98 05/17/17 07:58 Intake & Output 05/16/17 05/17/17 05/17/17 18:59 06:59 18:59 Intake Total 934 2699 Balance 934 2699 Weight (lbs) 51.619 kg 51.573 kg Intake: Intake, IV Amount 734 999 D5-0.45NS 1,000 ml @ 60 734 999 mls/hr IV .[id number] [facility] Rx #:[id number] Oral 200 1700 Other: # Voids 3 # Bowel Movements 0 0 Active Medications: Current Medications Acetaminophen/Hydrocodone Bitart ([place] 10 Mg/325 Mg) 1 tab PO Q6H PRN PRN Reason: Pain (Moderate) Stop: 07/12/17 04:37 Aspirin (Aspirin Chewable) [address] [facility] Stop: 07/14/17 08:59 Last Admin: 05/17/17 08:36 Dose: 81 mg Diltiazem HCl (Cardizem Cd) [address] [facility] Stop: 07/13/17 08:59 Last Admin: 05/17/17 08:36 Dose: 240 mg Furosemide (Lasix) [address] [facility] Stop: 07/13/17 08:59 Last Admin: 05/17/17 08:35 Dose: 20 mg Dextrose/Sodium Chloride (D5-0.45ns) 1,000 mls @ 60 mls/hr IV .[id number] [facility] Stop: 07/12/17 04:37 Last Admin: 05/16/17 23:44 Dose: 60 mls/hr Levothyroxine Sodium (Synthroid) 0.[address] [facility] Stop: 07/13/17 08:59 Last Admin: 05/17/17 08:35 Dose: 0.1 mg Losartan Potassium (Cozaar) [address] [facility] Stop: 07/13/17 08:59 Last Admin: 05/17/17 08:36 Dose: 25 mg Morphine Sulfate (Morphine) 2 mg IVP Q6H PRN PRN Reason: Pain (Severe) Stop: 07/12/17 04:37 Last Admin: 05/14/17 22:04 Dose: 2 mg Simvastatin (Zocor) 40 mg PO HS [facility] PRN Reason: Protocol Stop: 07/12/17 20:59 Last Admin: 05/16/17 21:30 Dose: 40 mg General: Alert, Oriented x3, Cooperative, No acute distress HEENT: Atraumatic, PERRLA, EOMI Neck: Supple, +2 carotid pulse wo bruit Cardiovascular: Regular rate, Normal S1, Normal S2 Lungs: Clear to auscultation Abdomen: Bowel sounds, Soft Extremities: Other (multiple areas of hematomas and laceration and bruising on upper and lower extremities.) Neurological: Other (decrease part for the upper and lower extremity.) Skin: Breakdown Assessment/Plan - Assessment Assessment: Status post mechanical fall. Multiple laceration and bruising involving upper and lower extremity Hypertension Hypothyroidism DJD. Generalized debility. Osteoporosis Advanced DJD of left hip. Declining self-care and mobility Fall risk Transient altered mental status resolved. - Plan Plan: Discussed with social group worker regarding DC to home with home health. Home health consult for medication compliance and home safety, and general nursing care, PT OT. Discharge to home once everything is arranged. Continue current treatment plan as ordered. General nursing care. Outpatient follow-up with primary care Natasha in one week
--- NOTE | 2017-05-18 02:44 | Admit Criteria Form ---
Admit Criteria Forms - Admit Criteria Diagnosis: GENERAL ADMISSION CRITERIA (Place 'X' for any and all applicable criteria): Admission is indicated for ANY ONE of the following: [ ]I. Hemodynamic instability as indicated by ANY ONE of the following(1)(2) (3)(4)(5): [ ]a) Vital sign abnormality not readily corrected by appropriate treatment within 12 to 24 hours indicated by ANY ONE of the following: [ ]i) Hypotension [ ]ii) Symptomatic Tachycardia unresponsive to treatment (eg , analgesia, fluids, sedation as indicated) [ ]iii) Orthostatic vital sign changes unresponsive to treatment (eg, fluids) [ ]b) Vital sign abnormality that is severe indicated by ANY ONE of the following: [ ]i) Inadequate perfusion indicated by ANY ONE of the following: [ ]1) Lactic acidosis (greater than 2 mmol/L) [ ]2) New abnormal capillary refill (greater than 3 seconds) [ ]3) Other metabolic acidosis (arterial pH less than 7.35) not otherwise explained [ ]4) Reduced urine output [ ]5) Altered mental status [ ]6) Myocardial Ischemia [ ]v) Mean arterial pressure[A] less than 60 mm Hg [ ]vi) Mean arterial pressure[A] less than 70 mm Hg after 30 minutes of appropriate treatment (eg, fluid resuscitation) [ ]vii) IV inotropic or vasopressor medication required to maintain adequate blood pressure or perfusion [ ]viii) Sustained heart rate greater than 120 beats per minute in adult or child 6 years or older[B]] [ ]II. Hypertension requiring inpatient treatment as indicated by ANY ONE of the following(6)(7)(8): [ ]a) SBP greater than 220 mm Hg or DBP greater than 120 mm Hg despite treatment [ ]b) SBP greater than 140 mm Hg or DBP greater than 100 mm Hg with evidence of acute end organ damage as indicated by ANY ONE of the following: [ ]i) Encephalopathy [ ]ii) Acute renal failure as indicated by new onset of ANY ONE of the following(9)(10)(11)(12)(13): [ ]1) A 3-fold rise in serum creatinine from baseline [ ]2) Serum creatinine greater than 4 mg/dL ( 354 micromoles/L) with acute rise greater than 0.5 mg/dL (44.2 micromoles/L) [ ]3) Reduction of more than 75% in estimated glomerular filtration rate from baseline [ ]4) Estimated glomerular filtration rate less than 35 mL/min/1.73m2 (0.59 mL/sec/1.73m2) in child up to 18 years of age [ ]5) Cessation of urine output indicated by ALL of the following: [ ]A. Adequate volume status [ ]B. Inadequate urine output as indicated by ANY ONE of the following: [ ]a. Urine output less than 0.3 mL/kg/hr for 24 hours [ ]b. Anuria (urine output less than 0.1 mL/kg/hr) for 12 hours [ ]iii) Aortic dissection [ ]iv) Myocardial ischemia [ ]v) Left ventricular heart failure [ ]vi) Retinal hemorrhage [ ]vii) Other significant finding [ ]c) Hypertension in child requiring inpatient treatment as indicated by ALL of the following(14)(15)(16): [ ]i) Outpatient treatment not effective, not available, or not appropriate [ ]ii) SBP or DBP greater than 95th percentile for age [ ]iii) Evidence of acute end organ damage as indicated by ANY ONE of the following: [ ]1) Altered mental status [ ]2) Acute renal failure as indicated by new onset of ANY ONE of the following(9)(10)(11)(12)(13): [ ]A. A 3-fold rise in serum creatinine from baseline [ ]B. Serum creatinine greater than 4 mg/dL (354 micromoles/L) with acute rise greater than 0.5 mg/dL (44.2 micromoles/L) [ ]C. Reduction of more than 75% in estimated glomerular filtration rate from baseline [ ]D. Estimated glomerular filtration rate less than 35 mL/min/1.73m2 (0.59 mL/sec/1.73m2)in child up to 18 years of age [ ]E. Cessation of urine output indicated by ALL of the following: [ ]a. Adequate volume status [ ]b. Inadequate urine output as indicated by ANY ONE of the following: [ ]1) Urine output less than 0.3 mL/kg/hr for 24 hours [ ]2) Anuria (urine output less than 0.1 mL/kg/hr) for 12 hours [ ]3) Severe headache [ ]4) Visual disturbance [ ]5) Retinal hemorrhage [ ]6) Other significant finding [ ]III. Acute cardiac or peripheral ischemia as indicated by ANY ONE of the following: [ ]a) Acute coronary syndrome(17)(18) [ ]b) Acute peripheral ischemia (eg, pulseless, cool, mottled, or cyanotic extremity)(19) [ ]IV. Cardiac arrhythmias or findings of immediate concern indicated by ANY ONE of the following(20)(21): [ ]a) Heart rhythms that are inherently dangerous or unstable indicated by ANY ONE of the following(22)(23)(24): [ ]i) Resuscitated ventricular fibrillation or cardiac arrest [ ]ii) Ventricular escape rhythm [ ]iii) Sustained ventricular tachycardia (30 seconds or more of ventricular rhythm at greater than 100 beats per minute) [ ]iv) Nonsustained ventricular tachycardia and ANY ONE of the following: [ ]1) Suspected cardiac ischemia as cause or consequence of ventricular tachycardia [ ]2) In setting of acute myocarditis [ ]b) Unstable cardiac conduction defects indicated by ANY ONE of the following(24)(25)(26): [ ]i) Type II second-degree atrioventricular block [ ]ii) Third-degree atrioventricular block [ ]iii) New-onset left bundle branch block with suspected myocardial ischemia [ ]c) Any heart rhythm and ANY ONE of the following(22)(23)(27)(28)( 29): [ ] i) Continuous long-term ECG monitoring needed (eg, initiation of drug requiring monitoring for more than 24 hours) [ ] ii) Patient has automatic implanted cardioverter defibrillator that is repeatedly firing, malfunctioning, or in need of immediate adjustment of settings beyond the scope of ambulatory or observation care. [ ]d) Heart rhythms of concern due to ANY ONE of the following: [ ]i) Hypotension [ ]ii) Respiratory distress [ ]iii) Association with other significant symptoms (eg, bradycardia with syncope or ongoing dizziness, supraventricular tachycardia with chest pain) (27)(28) (30) [ ] V. Severe heart failure as indicated by ANY ONE of the following ( 31)(32): [ ]a) Respiratory distress [ ]b) Hypotension [ ]c) Anasarca (refractory to outpatient therapy) [ ]d) Cardiac arrhythmias of immediate concern [ ]e) Myocardial ischemia [ ]. Respiratory abnormalities, including ANY ONE of the following(33)(34) (35)(36): [ ]a) Respiratory rate greater than 30 breaths per minute unresponsive to treatment [A] [ ]b) New saturation of arterial oxygen less than 90% [ ]c) New partial pressure of carbon dioxide greater than 44 mm Hg ( 5.9 kPa) [ ]d) Supplemental oxygen or respiratory treatments needed that are new or not performable at other levels of care [ ]e) New-onset cyanosis [ ]f) Inability to protect airway [ ]g) Chronic lung disease with severe deterioration (not responsive to emergency and observation care treatment as appropriate) as indicated by ANY ONE of the following(34)(36 ): [ ]i) SaO2 5% below baseline in patient with chronic hypoxemia [ ]ii) New requirement for supplemental oxygen to keep SaO2 at baseline or acceptable level [ ]iii) Required supplemental oxygen performable only in acute inpatient setting [ ]iv) Severe airflow or ventilation abnormalities [ ]v) Previously mobile patient unable to walk between rooms [ ]vi Inability to eat or sleep due to dyspnea [ ]vii) Rapid rate of exacerbation onset [ ]viii) Altered mental status ]VII. Severe airflow or ventilation abnormalities (not responsive to emergency and observation care treatment as appropriate) as indicated by ANY ONE of the following(33)(34)(35)(37): [ ]a) PCO2 greater than 42 mm Hg (5.6 kPa) and pH less than 7.35 (new ) [ ]b) Documented PCO2 increased more than 5 mm Hg (0.7 kPa) from disease baseline [ ]c) Airflow measurements [B] less than 60% of previous best or predicted (eg, peak expiratory flow rate less than 300 L/minute) despite intensive emergent treatment [C] [ ]d) Required respiratory treatments that are performable only in acute inpatient setting [ ]VIII. Impending or actual respiratory arrest ( Also use Respiratory Failure GRG for severe respiratory disease and long-term mechanical ventilation patients) [ ]IX. Neurologic abnormalities, including ANY ONE of the following: [ ]a) New findings that suggest ANY ONE of the following: [ ]i) [employer] infection(38) [ ]ii) Cerebral bleeding, ischemia, or vasospasm(39)(40) [ ]iii) Increased intracranial pressure, hydrocephalus, or cerebral edema(41)(42)(43) [ ]iv) Spinal cord injury(44) [ ]b) Uncontrolled seizures(45) [ ]c) New-onset coma (eg, Mahesh coma scale score less than 9) or unexplained abnormal mental status (eg, Mahesh coma scale score less than 14) [D](41)(46)(47) [ ]X. New-onset severe neurologic findings requiring inpatient care; examples include(42)(48)(49): [ ]a) Papilledema [ ]b) Cerebral edema [ ]c) Mass effect on CT scan [ ]XI. Suspected acute intra-abdominal process with peritoneal signs, abdominal mass, or similar findings (50)(51)(52) [ ]XII. Severe physiologic disorder remaining after emergency or observation level care (as appropriate) as indicated by ANY ONE of the following (53): [ ]a) Significant dehydration [ ]b) Diabetic ketoacidosis [ ]c) Hyperglycemic hyperosmolar state (eg, osmolality greater than 320 mOsm/kg (mmol/kg) [ ]d) Hypoglycemia [ ]e) Other (new) acid-base disorder with pH less than 7.35 or greater than 7.5(54) [ ]f) Thyroid storm (55) [ ]g) Myxedema coma (55) [ ]XIII. Abdominal abnormalities with ANY ONE of the following(56)(57): [ ]a) Absent bowel sounds with complete ileus [ ]b) Signs of intestinal obstruction or peritonitis [E] [ ]c) Nausea and vomiting that cannot be controlled with outpatient or observation care [ ]XIV. Acute renal failure as indicated by new onset of ANY ONE of the following(9)(10)(11)(12)(13): [ ]a) A 3-fold rise in serum creatinine from baseline [ ]b) Serum creatinine greater than 4 mg/dL (354 micromoles/L) with acute rise greater than 0.5 mg/dL (44.2 micromoles/L) [ ]c) Reduction of more than 75% in estimated glomerular filtration rate from baseline [ ]d) Estimated glomerular filtration rate less than 35 mL/min/ 1.73m2 (0.59 mL/sec/1.73m2) in child up to 18 years of age [ ]e) Cessation of urine output indicated by ALL of the following: [ ]i) Adequate volume status [ ]ii) Inadequate urine output as indicated by ANY ONE of the following: [ ]1) Urine output less than 0.3 mL/kg/hr for 24 hours [ ]2) Anuria (urine output less than 0.1 mL/kg/hr) for 12 hours [ ]XV. Significant uremic complications as indicated by ANY ONE of the following(58)(59)(60): [ ]a) Outpatient therapy is ineffective or not feasible for ANY ONE of the following: [ ]i) Severe heart failure [ ]ii) Severehypertension [ ]iii) Pleural effusion [ ]iv) Pericarditis or pericardial effusion [ ]b) Cardiac arrhythmias of immediate concern [ ]c) Intractable nausea or vomiting [ ]d) Recurrent seizures [ ]e) Encephalopathy [ ]f) Bleeding abnormalities (eg, platelet dysfunction) with active (eg, gastrointestinal) bleeding [ ]g) Dialysis indicated before long-term access or ambulatory arrangements can be made [ ]h) Significant metabolic or electrolyte abnormalities (eg, severe acidosis or hyperkalemia) [ ]XVI. High fever or other high-risk infection situation as indicated by ANY ONE of the following(61)(62)(63)(64): [ ]a) Outpatient and observation care antimicrobial treatment unavailable, not effective, or not appropriate [ ]b) Documented bacteremia [ ]c) Temperature greater than 40.5 degrees C (104.9 degrees F) ( oral) [ ]d) Temperature greater than 39.5 degrees C (103.1 degrees F) ( oral) or less than 36 degrees C (96.8 degrees F) (rectal) that does not respond to e treatment and observation care [ ] XVII. Temperature less than 95 degrees F (35 degrees C)(rectal)(65) [ ] XVIII. Severe nutritional abnormalities as indicated by ALL of the following (66)(67): [ ]a) Inability to tolerate or establish sufficient oral or other enteral nutrition in outpatient setting [ ]b) Parenteral nutrition regimen need that must be implemented on inpatient basis [ ] XIX. Severe electrolyte abnormalities indicated by ALL of the following(68) (69)(70): [ ]a) Electrolytes and associated findings are not as expected for patient baseline or acceptable treatment effects. [ ]b) Severe abnormalities indicated by ANY ONE of the following: [ ]i) Sodium less than 130 mEq/L (mmol/L) (new) [ ]ii)Sodium less than 135 mEq/L (mmol/L) with ANY ONE of the following: [ ]1) Uncorrectable (to near normal or chronic baseline) after trial of outpatient and emergency treatment [ ]2) Altered mental status [ ]3) Seizures [ ]4) Severe medical etiology requiring inpatient management (eg, heart failure, hypovolemia) [ ]iii) Sodium greater than 155 mEq/L (mmol/L) [ ]iv) Sodium greater than 150 mEq/L (mmol/L) with ANY ONE of the following: [ ]1) Uncorrectable (to near normal or chronic baseline) with outpatient and emergency treatment [ ]2) Altered mental status [ ]3) Seizures [ ]4) Severe medical etiology (eg, hypovolemia, diabetes insipidus) [ ]v) Potassium less than 2.5 mEq/L (mmol/L) despite outpatient and emergency treatment [ ]vi) Potassium less than 3 mEq/L (mmol/L) with ANY ONE of the following: [ ]1) Weakness [ ]2) Cardiac abnormality (eg, arrhythmia, conduction disturbance) [ ]3) Cardiac ischemia [ ]4) Ileus [ ]5) Ongoing medical cause requiring inpatient management (eg, acute renal wasting or SIADH) [ ]6) Other severe symptoms [ ]vii) Potassium greater than 6.5 mEq/L (mmol/L) [ ]viii) Potassium greater than 5 mEq/L (mmol/L) with ANY ONE of the following: [ ]1) Uncorrectable (to near normal or chronic baseline) with outpatient and emergency treatment [ ]2) Severe ECG findings [F] [ ]3) Acute worsening of renal failure (creatinine greater than 2.5 mg/dL (221 micromoles/L) or significant elevation for age and size) [ ]4) Severe weakness [ ]5) Severe medical etiology (eg, hemolysis, infection, drug overdose) [ ]ix) Calcium less than 7 mg/dL (1.75 mmol/L) despite outpatient and emergency treatment (72) [ ]x) Calcium less than 8 mg/dL (2 mmol/L) with significant symptoms or findings; examples include(72): [ ]1) Altered mental status [ ]2) Muscle spasms [ ]3) Seizures [ ]4) Breathing difficulty [ ]5) Cardiac abnormality (eg, arrhythmia or conduction disturbance) [ ]xi) Calcium greater than 14 mg/dL (3.5 mmol/L)(72) [ ]xii) Calcium greater than 12 mg/dL (3 mmol/L) with ANY ONE of the following(72): [ ]1) Uncorrectable (to near normal or chronic baseline) with outpatient and emergency treatment [ ]2) Significant dehydration or hypovolemia as indicated by ALL of the following(70)(73)(74): [ ]A. Not resolved with initial treatments [ ]B. Clinically significant dehydration as indicated by ANY ONE of the following: [ ]a. Vomiting refractory to outpatient treatment (ie, precluding oral rehydration) [ ]b. Inability to drink [ ]c. Hypernatremia or other electrolyte abnormality unable to be corrected with outpatient and emergency treatment [ ]d. Failure to remain hydrated with outpatient therapy [ ]e. Reduced urine output [ ]f. Hypotension [ ]g. Serious cause for dehydration requiring acute hospitalization (eg, bowel obstruction, increased intracranial pressure, infectious cause) [ ]h. Child with ANY ONE of the following(75): [ ]1) Severe abdominal tenderness [ ]2) Adequate care not available at home [ ]3) Severe dehydration ( greater than 9% loss of body weight) [ ]4) Significant symptoms or findings; examples include: [ ]A. Altered mental status [ ]B. Cardiac abnormality (eg, arrhythmia, conduction disturbance) [ ]C. Malignant etiology requiring inpatient treatment [ ]xiii) Phosphorus less than 1 mg/dL (0.32 mmol/L) [ ]xiv) Phosphorus less than 1.5 mg/dL (0.48 mmol/L) with ANY ONE of the following: [ ]1) Patient unresponsive to outpatient and emergency treatment [ ]2) Significant symptoms or findings; examples include: [ ]A. Weakness [ ]B. Altered mental status [ ]C. Breathing difficulty [ ]D. Seizures [ ]E. Rhabdomyolysis [ ]xv) Phosphorus greater than 10 mg/dL (3.2 mmol/L) [ ]xvi) Phosphorus greater than 4.5 mg/dL (1.45 mmol/L) (new) with ANY ONE of the following: [ ]1) Severe medical etiology (eg, crush injury, acute renal failure) [ ]2) Associated hypocalcemia with significant findings; examples include: [ ]A. Neurologic symptoms [ ]B. Altered mental status [ ]C. Muscle spasms [ ]D. Seizures [ ]E. Breathing difficulty [ ]F. Cardiac abnormality (eg, arrhythmia, conduction disturbance) [ ]xvii) Magnesium less than 1 mg/dL (0.41 mmol/L) [ ]xviii) Magnesium less than 1.5 mg/dL (0.62 mmol/L) with ANY ONE of the following: [ ]1) Patient unresponsive to outpatient and emergency treatment [ ]2) Associated hypocalcemia with significant findings; examples include: [ ]A. Altered mental status [ ]B. Muscle spasms [ ]C. Seizures [ ]D. Breathing difficulty [ ]E. Cardiac abnormality (eg, arrhythmia , conduction disturbance) [ ]3) Associated hypokalemia (potassium less than 3 mEq/L (mmol/L)) with risk of arrhythmia [ ]xix) Magnesium greater than 4 mEq/L (2 mmol/L) [ ]xx) Magnesium greater than 2.5 mEq/L (1.25 mmol/L) with significant symptoms or findings; examples include: [ ]1) Weakness [ ]2) Altered mental status [ ]3) Cardiac abnormality (eg, arrhythmia, conduction disturbance) [ ]4) Breathing difficulty [ ]5) Severe medical etiology (eg, renal failure, hypovolemia) [ ]xxi) Uric acid greater than 20 mg/dL (1190 micromoles/L)(76) [ ]xxii) Uric acid greater than 8 mg/dL (476 micromoles/L) with significant symptoms or findings of tumor lysis syndrome; examples include(76): [ ]1) Creatinine greater than 1.5 times upper limit of normal [ ]2) Cardiac abnormality (eg, arrhythmia, conduction disturbance) [ ]3) Seizure [ ]XX. Acute blood loss causing significant abnormality as indicated by ANY ONE of the following(77)(78): [ ]a) Hemoglobin less than 10 g/dL (100 g/L) (not baseline) [ ]b) Hematocrit less than 30% (0.30) (not baseline) [ ]c) Repeat hematocrit decreased more than 2% (0.02) [ ]d) Uncontrolled bleeding [ ]XXI. Severe anemia indicated by ANY ONE of the following(78)(79): [ ]a) Altered mental status [ ]b) Chest pain [ ]c) Exertional dyspnea [ ]d) Syncope [ ]e) Other findings suggesting inadequate perfusion [ ]f) Treatment with transfusion or volume replacement is ineffective at resolving ANY ONE of the following [G]: [ ]i) Tachycardia for age [ ]ii) Orthostatic vital sign changes as indicated by ANY ONE of the following(80): [ ]1) Fall in SBP of 20 mm Hg or more 1 to 3 minutes after patient sits or stands from recumbent position [ ]2) Fall in DBP of 10 mm Hg or more 1 to 3 minutes after patient sits or stands from recumbent position [ ]XXII. High-risk low platelet count as indicated by ANY ONE of the following( 81)(82): [ ]a) Severe or life-threatening bleeding (eg, intracranial, major gastrointestinal, or extensive mucosal bleeding), with any reduced platelet count [ ]b) Platelet count less than 20,000/mm3 (20 x109/L) with any active bleeding [ ]c) Platelet count less than 10,000/mm3 (10 x109/L) with minor purpura or petechiae [ ]d) Platelet count less than 5000/mm3 (5 x109/L) [ ]e) Low platelet count with hemolytic anemia [ ]XXIII. Disseminated intravascular coagulation(77)(83) [ ]XXIV. Severe adverse drug or systemic toxin reaction requiring inpatient treatment; examples include(84)(85): [ ]a) Serotonin syndrome(86) [ ]b) Neuroleptic malignant syndrome(86) [ ]c) Cholinergic syndrome with severe symptoms (eg, bronchorrhea, weakness, mental status changes, seizures) [ ]d) Sympathetic syndrome with severe symptoms (eg, seizures, mental status changes, cardiac dysrhythmias) [ ]e) Anticholinergic syndrome [ ]XXV. Severe pain requiring acute inpatient management as indicated by ALL of the following (87)(88)(89): [ ]a) Continuous or frequent (eg, every 2 to 4 hours) parenteral analgesics required [H] [ ]b) Rapid improvement expected from treatment or acute intervention (eg, surgery, anesthesia procedure) [ ]XXVI.Severe behavioral health issues judged unmanageable at a lower level of care (eg, residential) in a patient who is ANY ONE of the following(91) [ ]a) Acutely suicidal [ ]b) A danger to self (eg, self-mutilating or suicidal behavior) [ ]c) A danger to others (eg, assaultive or homicidal behavior) [ ]d) Incapacitated because of grave disability (eg, inability to provide for self at lower level of care) (92) [X ]XXVII. Inpatient monitoring needed; examples include(1)(3)(87)(93)(94)(95)( 96): [X ]a) Vital signs, neurologic signs, or vascular checks more frequently than every 4 hours [ ]b) Cardiac or respiratory monitoring beyond the scope (eg, over 24 hours) of observation care [ ]c) Pulmonary artery catheter monitoring [ ]d) Suspected compartment syndrome(97) (98) [ ]e) Cerebral bleeding, hydrocephalus, or vasospasm monitoring [ ]f) Increased intracranial pressure or cerebral edema monitoring [ ]g) monitoring [ ]XXVIII. Treatment requiring inpatient care; examples include: [ ]a) IV fluid to replace significant ongoing losses (greater than 3 L/m2 per day)(53) [ ]b) High concentration oxygen (greater than 40%)(33)(99)(100) [ ]c) Frequent respiratory therapy (more frequently than every 4 hours) to maintain airflow rates greater than 60% of baseline(33)(99)(100) [ ]d) Epidural analgesia(87) [ ]e) IV anticoagulation, vasoactive, or antiarrhythmic medication(19 )(23) [ ]f) Acute thrombolytics (generally require 24 hours of observation )(101)(102) [ ]XXIX. Emergency procedures needed; examples include: [ ]a) Emergency inpatient surgery [ ]b) Temporary pacemaker placement(103) [ ]c) Chest tube placement with active evacuation (eg, suction, drainage)(104) [ ]d) Emergent cardioversion(105) [ ]e) Emergent cardiac or vascular procedures (eg, cardiac catheterization, angioplasty) (17)(18) [ ]f) Emergent dialysis access placement and institution(10)(106) [ ]g) Emergent pericardiocentesis(107) [ ]h) Emergent plasmapheresis or leukapheresis(83) [ ]i) Emergent tracheostomy The original [employer] content created by [employer] has been revised. The portions of the content which have been revised are identified through the use of italic text or in bold, and [facility] has neither reviewed nor approved the modified material. All other unmodified content is copyright [employer]. Please see references footnoted in the original [employer] edition 2016 Admit Criteria Met?: Yes
[2017-05-18] MEDS: D5-0.45NS 1,000 ML IV SCH (05:13)
--- NOTE | 2017-05-18 09:10 | General Progress Note ---
Subjective - Review of Systems Subjective: Patient is seen and examined. Patient's denies any chest pain, shortness of breath, palpitation, dizziness, nausea vomiting. Awaiting health care social worker to arrange discharge to alf. Objective - Results Result Diagrams: 05/16/17 06:00 05/16/17 06:00 Recent Labs: Laboratory Last Values WBC 9.6 Th/cmm (4.8-10.8) D 05/16/17 06:00 RBC 4.64 Mil/cmm (3.80-5.20) 05/16/17 06:00 Hgb 13.4 gm/dL (11.7-16.1) 05/16/17 06:00 Hct 41.0 % (35.0-45.0) D 05/16/17 06:00 MCV 88.4 fl (81-100) 05/16/17 06:00 MCH 29.0 pg (27.0-31.0) 05/16/17 06:00 MCHC Differential 32.8 pg (28.0-36.0) 05/16/17 06:00 RDW 14.1 % (11.5-20.0) 05/16/17 06:00 Plt Count 327 Th/cmm (150-400) 05/16/17 06:00 MPV 5.9 fl 05/16/17 06:00 Neutrophils % 77.2 % (40.0-80.0) 05/16/17 06:00 Band Neutrophils % 2 % (0-10) 05/14/17 05:40 Lymphocytes % 10.0 % (20.0-50.0) L 05/16/17 06:00 Monocytes % 10.1 % (2.0-10.0) H 05/16/17 06:00 Eosinophils % 1.8 % (0.0-5.0) 05/16/17 06:00 Basophils % 0.9 % (0.0-2.0) 05/16/17 06:00 Neutrophils (Manual) 87 % (40-80) H 05/14/17 05:40 Lymphocytes 6 % (20-50) L 05/14/17 05:40 Monocytes 5 % (2-10) 05/14/17 05:40 Platelet Estimate ADEQUATE (NORMAL) 05/14/17 05:40 PT 9.9 SECONDS (9.5-11.5) 05/13/17 00:49 INR 0.95 (0.5-1.4) 05/13/17 00:49 Specimen Source Arterial 05/13/17 02:21 Sample Site L-R 05/13/17 02:21 pH 7.40 (7.35-7.45) 05/13/17 02:21 pCO2 58.0 mmHg (35.0-45.0) H* 05/13/17 02:21 pO2 43.0 mmHg (80.0-100.0) L* 05/13/17 02:21 HCO3 31.7 mEq/L (20.0-26.0) H 05/13/17 02:21 Base Excess 9.2 mEq/L (-3.0-3.0) H 05/13/17 02:21 O2 Saturation 79.0 % (92.0-100.0) L 05/13/17 02:21 Mike Test P 05/13/17 02:21 Vent Rate NA 05/13/17 02:21 Inspired O2 21 05/13/17 02:21 Tidal Volume NA 05/13/17 02:21 PEEP NA 05/13/17 02:21 Pressure (ins/psv/peep) NA 05/13/17 02:21 Critical Value RPINEIRA 05/13/17 02:21 Sodium 129 mEq/L (136-145) L 05/16/17 06:00 Potassium 3.5 mEq/L (3.5-5.1) 05/16/17 06:00 Chloride 92 mEq/L (98-107) L 05/16/17 06:00 Carbon Dioxide 33.8 mEq/L (21.0-31.0) H 05/16/17 06:00 Anion Gap 6.7 (7.0-16.0) L 05/16/17 06:00 BUN 15 mg/dL (7-25) 05/16/17 06:00 Creatinine 0.5 mg/dL (0.6-1.2) L 05/16/17 06:00 Est GFR ( Amer) TNP 05/16/17 06:00 Est GFR (Non-Af Amer) TNP 05/16/17 06:00 BUN/Creatinine Ratio 30.0 05/16/17 06:00 Glucose 96 mg/dL (70-105) 05/16/17 06:00 Whole Bld Lactic Acid 0.89 mmol/L (0.60-1.99) 05/13/17 00:49 Calcium 9.0 mg/dL (8.6-10.3) 05/16/17 06:00 Total Bilirubin 0.8 mg/dL (0.3-1.0) 05/16/17 06:00 AST 19 U/L (13-39) 05/16/17 06:00 ALT 13 U/L (7-52) 05/16/17 06:00 Alkaline Phosphatase 77 U/L (34-104) 05/16/17 06:00 Troponin I 0.05 ng/mL (0.01-0.05) 05/13/17 00:49 Total Protein 6.0 gm/dL (6.0-8.3) 05/16/17 06:00 Albumin 3.4 gm/dL (3.7-5.3) L 05/16/17 06:00 Globulin 2.6 gm/dL 05/16/17 06:00 Albumin/Globulin Ratio 1.3 (1.0-1.8) 05/16/17 06:00 Triglycerides 74 mg/dL (<150) 05/13/17 00:49 Cholesterol 177 mg/dL (<200) 05/13/17 00:49 LDL Cholesterol Direct 83 mg/dL (75-193) 05/13/17 00:49 HDL Cholesterol 71 mg/dL (23-92) 05/13/17 00:49 TSH 0.05 uIU/ml (0.34-5.60) L 05/13/17 00:49 Urine Source CLEAN C 05/13/17 15:30 Urine Color YELLOW 05/13/17 15:30 Urine Clarity HAZY (CLEAR) 05/13/17 15:30 Urine pH 6.0 (4.6 - 8.0) 05/13/17 15:30 Ur Specific [place] 1.015 (1.005-1.030) 05/13/17 15:30 Urine Protein TRACE mg/dL (NEGATIVE) 05/13/17 15:30 Urine Glucose (UA) 500 mg/dL (NEGATIVE) H 05/13/17 15:30 Urine Ketones NEGATIVE mg/dL (NEGATIVE) 05/13/17 15:30 Urine Blood LARGE (NEGATIVE) H 05/13/17 15:30 Urine Nitrate NEGATIVE (NEGATIVE) 05/13/17 15:30 Urine Bilirubin NEGATIVE (NEGATIVE) 05/13/17 15:30 Urine Urobilinogen 0.2 E.U./dL (0.2 - 1.0) 05/13/17 15:30 Ur Leukocyte Esterase SMALL (NEGATIVE) H 05/13/17 15:30 Urine RBC 10-25 /hpf (0-5) H 05/13/17 15:30 Urine WBC 0-2 /hpf (0-5) 05/13/17 15:30 Ur Epithelial Cells MODERATE /lpf (FEW) 05/13/17 15:30 Urine Bacteria NONE SEEN /hpf (NONE SEEN) 05/13/17 15:30 RPR NONREACTIVE (NONREACTIVE) 05/13/17 00:49 - Physical Exam Vitals and I&O: Vital Signs Temp 97.9 F 05/18/17 00:00 Pulse 76 05/18/17 00:00 Resp 17 05/18/17 00:00 BP 147/68 05/18/17 00:00 Pulse Ox 97 05/18/17 00:00 Intake & Output 05/17/17 05/18/17 05/18/17 18:59 06:59 18:59 Intake Total 1000 1200 Balance 1000 1200 Weight (lbs) 51.165 kg Intake: Intake, IV Amount 1000 D5-0.45NS 1,000 ml @ 60 1000 mls/hr IV .[id number] [facility] Rx #:[id number] Oral 1200 Other: # Voids 2 # Bowel Movements 0 Active Medications: Current Medications Acetaminophen/Hydrocodone Bitart ([place] 10 Mg/325 Mg) 1 tab PO Q6H PRN PRN Reason: Pain (Moderate) Stop: 07/12/17 04:37 Aspirin (Aspirin Chewable) 81 mg PO DAILY [facility] Stop: 07/14/17 08:59 Last Admin: 05/17/17 08:36 Dose: 81 mg Diltiazem HCl (Cardizem Cd) 240 mg PO DAILY [facility] Stop: 07/13/17 08:59 Last Admin: 05/17/17 08:36 Dose: 240 mg Furosemide (Lasix) 20 mg PO DAILY [facility] Stop: 07/13/17 08:59 Last Admin: 05/17/17 08:35 Dose: 20 mg Dextrose/Sodium Chloride (D5-0.45ns) 1,000 mls @ 60 mls/hr IV .[id number] [facility] Stop: 07/12/17 04:37 Last Admin: 05/18/17 05:13 Dose: 60 mls/hr Levothyroxine Sodium (Synthroid) 0.1 mg PO DAILY [facility] Stop: 07/13/17 08:59 Last Admin: 05/17/17 08:35 Dose: 0.1 mg Losartan Potassium (Cozaar) 25 mg PO DAILY [facility] Stop: 07/13/17 08:59 Last Admin: 05/17/17 08:36 Dose: 25 mg Morphine Sulfate (Morphine) 2 mg IVP Q6H PRN PRN Reason: Pain (Severe) Stop: 07/12/17 04:37 Last Admin: 05/14/17 22:04 Dose: 2 mg Simvastatin (Zocor) 40 mg PO HS [facility] PRN Reason: Protocol Stop: 07/12/17 20:59 Last Admin: 05/17/17 22:19 Dose: 40 mg General: Alert, Oriented x3, Cooperative, No acute distress HEENT: Atraumatic, PERRLA, EOMI Neck: Supple, +2 carotid pulse wo bruit Cardiovascular: Regular rate, Normal S1, Normal S2 Lungs: Clear to auscultation Abdomen: Bowel sounds, Soft Extremities: Other (multiple areas of hematomas and laceration and bruising on upper and lower extremities.) Neurological: Other (decrease part for the upper and lower extremity.) Skin: Breakdown Assessment/Plan - Assessment Assessment: Status post mechanical fall. Multiple laceration and bruising involving upper and lower extremity Hypertension Hypothyroidism DJD. Generalized debility. Osteoporosis Advanced DJD of left hip. Declining self-care and mobility Fall risk Transient altered mental status resolved. - Plan Plan: Discussed with social services director regarding DC to home with home health versus alf. Home health consult for medication compliance and home safety, and general nursing care, PT OT, In case if it is not arrange then patient will be transferred to alf. Continue current treatment plan as ordered. General nursing care. Outpatient follow-up with primary care Natasha in one week versus follow-up by retirement physician and alf.
[2017-05-18] MEDS: Aspirin 81mg Chewable Tab PO SCH (09:12)
[2017-05-18] MEDS: Levothyroxine 0.1 Mg Tab PO SCH (09:13)
[2017-05-18] MEDS: Diltiazem CD 120 mg 24H PO SCH (09:13)
--- NOTE | 2017-05-24 11:49 | Discharge Summary ---
DATE OF DISCHARGE: 05/18/2017 PRINCIPAL DIAGNOSES: 1. Status post mechanical fall. 2. Multiple lacerations and bruising involving upper and lower extremity. 3. Hypertension. 4. Hypothyroidism. 5. Degenerative joint disease. 6. Osteoporosis. 7. Advanced degenerative joint disease of left hip. 8. Generalized debility. 9. Declining ____ mobility. 10. Fall risk. 11. Transient altered mental status during the hospital, resolved, suspect from encephalopathy. BRIEF STATEMENT FOR THE REASON FOR ADMISSION: An 87-year-old female who lives by herself, brought into the Emergency Room by paramedics after the patient's walker broke down and fell on the floor and had multiple lacerations and bruises. The patient was evaluated and subsequently admitted. Please refer to my dictated H and P for further information. HOSPITAL COURSE: The patient was admitted to Med/Surg Floor. Local wound care was given. X-rays of both the femur, tibia-fibula were requested, which was negative for any fracture. Social service consultation was requested. Appropriate home medicines were reconciled. PT/OT was provided. General nursing care and nutritional support was provided as well. field services manager evaluated the patient and they were trying to put the patient home with home health visiting nurse. Unfortunately, during the stay for one night, the patient was a little altered, but subsequently her mental status came back to the baseline. Her insurance company and older adult social work specialist were working together for the safe discharge and they were able to find the [facility] to [facility] the [facility]. The [facility] was accepted to a local [facility] and transferred on 05/18/2017 where the patient will be followed by her manage care MD. At the time of discharge, all of her medicines were reconciled. JOB# [id number]
== END 2017-05-18 16:55 | DRG 605 ==
LOC: ER 22:41 → MSI 05-13 02:15 → TELE 05-13 11:40 → MSI 05-13 16:55
PROVIDERS: ADMIT Internal Medicine; ATTEND Internal Medicine
DX: S81.811A Laceration without foreign body, right lower leg, initial encounter (principal); E86.0 Dehydration; I10 Essential (primary) hypertension; S41.111A Laceration without foreign body of right upper arm, initial encounter; E03.9 Hypothyroidism, unspecified; D72.829 Elevated white blood cell count, unspecified; S41.112A Laceration without foreign body of left upper arm, initial encounter; S81.812A Laceration without foreign body, left lower leg, initial encounter; S80.12XA Contusion of left lower leg, initial encounter; S80.11XA Contusion of right lower leg, initial encounter; S40.022A Contusion of left upper arm, initial encounter; S40.021A Contusion of right upper arm, initial encounter; M81.0 Age-related osteoporosis without current pathological fracture; R40.4 Transient alteration of awareness; W18.30XA Fall on same level, unspecified, initial encounter; Y93.89 Activity, other specified; Y92.89 Other specified places as the place of occurrence of the external cause; Y99.8 Other external cause status; M16.12 Unilateral primary osteoarthritis, left hip; Z91.81 History of falling
CPT/HCPCS: 36415-UA; 71010-TC; 73590-TC-LT; 73590-TC-RT; 80053-TC; 80061-TC; 81001-TC; 82803-TC; 83605; 84443-TC; 84484-TC; 85007-TC; 85025-TC; 85027-TC; 85610-TC; 86592-TC; 94760; 97530; A4217; J2270; J2930; X3904; Z7610

== ENCOUNTER 2019-04-09 18:57 | Emergency (ER) | payer BC, MEDICARE ==
[2019-04-09 19:48] LABS: % BASOPHILS 0.3 % (0.0-2.0); % EOSINOPHILS 0.9 % (0.0-5.0); % LYMPHOCYTES 14.8 % (20.0-50.0); EOSINOPHILE ABSOLUTE 0.1 Th/cmm (0.1-0.4); HEMATOCRIT 36.5 % (41.0-60); HEMOGLOBIN 12.2 gm/dL (12-16); LYMPHOCYTE ABSOLUTE 0.9 Th/cmm (1.5-3.0); MEAN CELL VOLUME 91.3 fl (81-100); MEAN CORPUSCULAR HEMOGLOBIN 30.4 pg (27.0-31.0); MEAN CORPUSCULAR HGB CONC 33.3 pg (28.0-36.0); MONOCYTE ABSOLUTE 0.6 Th/cmm (0.3-1.0); NEUTROPHILE ABSOLUTE 4.7 Th/cmm (1.8-8.0); PLATELET COUNT 365 Th/cmm (150-400); RED CELL DISTRIBUTION WIDTH 16.4 % (11.5-20.0); WHITE BLOOD COUNT 6.3 Th/cmm (4.8-10.8)
--- NOTE | 2019-04-09 19:52 | ED Physician Chart ---
ED Chief Complaint/HPI - Patient Information Date Seen:: 04/09/19 Time Seen:: 19:20 Chief Complaint:: slip and fall History of Present Illness:: 88 yr old with fall pain rt leg Allergies:: Allergies Allergy/AdvReac Type Severity Reaction Status Date / Time No Known Allergies Allergy Verified 05/12/17 22:48 Vitals:: Vital Signs - 8 hr 04/09/19 19:18 Temp 97.9 F HR 90 RR 18 BP 104/50 O2 Sat % 82 ED Review of Systems - Review of Systems General/Constitutional: No fever Skin: Other (arm bruising) Head: No headache Eyes: No loss of vision ENT: No earache Neck: No neck pain Cardio Vascular: No chest pain Pulmonary: No SOB GI: No vomiting Musculoskeletal: Bone or joint pain Endocrine: No polyuria Hematopoietic: No bruising Allergic/Immuno: No urticaria Neurological: No syncope ED Past Medical History - Past Medical History Past Medical History: Other (multiple medical problems) Family Medical History - Family Member mother History Unknown: Yes ED Physical Exam - Physical Examination General/Constitutional: Well-developed, well-nourished, Alert Head: Atraumatic Eyes: Lids, conjuctiva normal Other Skin comments:: old bruises arms Neck: Nontender Respiratory: Nl effort/Exclusion Cardio Vascular: RRR GI: No tenderness/rebounding/guarding Other Extremities comments:: rt leg tenderness Neuro/Psych: Alert/oriented ED Labs/Radiology/EKG Results - Lab Results Results: xray nofx has rt hip implant ED Assessment - Assessment General Assessment: fall sprain rt hip ED Septic Shock - . Is Septic Shock (SBP<90, OR Lactate>4 mmol\L) present?: No - <6hrs of presentation: Vital Signs: Vital Signs - 8 hr 04/09/19 19:18 Temp 97.9 F HR 90 RR 18 BP 104/50 O2 Sat % 82 ED Reassessment (Disposition) - Reassessment Reassessment:: sprain fall rt leg - Diagnosis Diagnosis:: as above - Patient Disposition Discharge/Transfer:: Home Condition at Disposition:: Stable
[2019-04-09 19:58] LABS: INR 0.9 (0.5-1.4)
[2019-04-09 20:01] LABS: ALB/GLOB RATIO 1.5 (1.0-1.8); ALBUMIN 3.3 gm/dL (3.7-5.3); ALKALINE PHOSPHATASE 103 U/L (34-104); ANION GAP 12.8 (7.0-16.0); BILIRUBIN,TOTAL 0.4 mg/dL (0.3-1.0); BUN - UREA NITROGEN 16 mg/dL (7-25); CALCIUM SERUM 8.6 mg/dL (8.6-10.3); CARBON DIOXIDE 31.8 mEq/L (21.0-31.0); CHLORIDE 99 mEq/L (98-107); CREATININE - SERUM 0.9 mg/dL (0.6-1.2); GLUCOSE 108 mg/dL (70-105); POTASSIUM SERUM 3.6 mEq/L (3.5-5.1); SGOT 16 U/L (13-39); SGPT/ALT 17 U/L (7-52); SODIUM SERUM 140 mEq/L (136-145); TOTAL PROTEIN,SERUM 5.5 gm/dL (6.0-8.3)
--- NOTE | 2019-04-10 10:01 | Diagnostic Imaging Report ---
Pelvis and right hip 2 views Indication: pain Comparison: none Findings: Exam is limited due to body habitus and osteopenia. Right hip total arthroplasty is noted. No gross fracture or dislocation of the right hip. There is deformity of the left femoral neck and likely age-indeterminate fracture. Note other occult pelvic fractures cannot be excluded. Osteopenia is noted. Advanced degenerative changes are seen greatest to the left hip joint. Atherosclerosis is noted. Degenerative gas-filled loops of bowel noted. IMPRESSION: Limited exam due to body habitus. There is deformity of the left proximal femur. Age indeterminate impacted fracture cannot be excluded. Recommend further assessment with CT exam given the limitations of this exam to assess for possible other occult fractures, difficult to see by patient's osteopenia Total right hip arthroplasty. In the setting of trauma, if clinical symptoms persist and there is continued concern for an occult fracture, follow up exams in 5-7 days is suggested.
--- NOTE | 2019-04-10 10:05 | Diagnostic Imaging Report ---
Right tib-fib 2 views Indication: pain Comparison: Right tib-fib x-ray on 05/14/2017 Findings: Moderate to advanced degenerative changes in the joint are noted with medial knee compartment joint space narrowing. There is minimal chondrocalcinosis. The lateral views limited due to positioning. There is slight irregularity of the proximal fibula possibly projectional versus less likely a nondisplaced fracture. Osteopenia is noted. Diffuse atherosclerosis is noted. Small plantar calcaneal spur is noted. Impression: Slight irregularity of the proximal fibula probably projectional. A Recent nondisplaced fractures, is considered less likely, however, clinical correlation is needed Osteopenia Degenerative changes Diffuse atherosclerosis. In the setting of trauma, if clinical symptoms persist and there is continued concern for an occult fracture, follow up exams in 5-7 days is suggested.
== END 2019-04-10 01:30 | disposition short-term general hospital (02) ==
LOC: ER 18:57
DX: S73.101A Unspecified sprain of right hip, initial encounter (principal); W01.0XXA Fall on same level from slipping, tripping and stumbling without subsequent striking against object, initial encounter; Y93.89 Activity, other specified; Y92.89 Other specified places as the place of occurrence of the external cause; Y99.8 Other external cause status
CPT/HCPCS: 36415-UA; 73501; 73590-TC-RT; 80053-TC; 85025-TC; 85610-TC; 93005